=== PATIENT | female | born 1970 | race Caucasian/White ===

== ENCOUNTER 2023-06-15 10:51 | Emergency (ER) | payer MEDICAID ==
[~2023-06-15] VITALS: Ht 157.5 cm; Wt 96.2 kg
[~2023-06-15 10:51] MED LIST: VIC PO
[2023-06-15 10:58] VITALS: BP 153/86; PULSE 71; RESP 19; TEMP 98.4; O2SAT 96
[2023-06-15] MEDS: IBUPROFEN 600 MG TAB PO ONE (12:25)
[2023-06-15] MEDS ORDERED: IBUP-2213 PO (12:59)
== END 2023-06-15 13:23 | disposition home or self-care (01) ==
LOC: MED 10:51
DX: S93.401A Sprain of unspecified ligament of right ankle, initial encounter (principal); Z79.1 Long term (current) use of non-steroidal anti-inflammatories (NSAID); Z79.899 Other long term (current) drug therapy; W54.1XXA Struck by dog, initial encounter; Y93.89 Activity, other specified; Y92.098 Other place in other non-institutional residence as the place of occurrence of the external cause; Y99.8 Other external cause status
CPT/HCPCS: 73610; 99283